=== PATIENT | male | born 1980 | race Caucasian/White ===

== ENCOUNTER 2019-01-06 09:01 | Emergency (ER) | payer MEDICAID ==
[~2019-01-06] VITALS: Ht 185.4 cm; Wt 99.8 kg
[2019-01-06 09:32] VITALS: BP 137/92
== END 2019-01-06 10:34 | disposition home or self-care (01) ==
LOC: ER 09:01
DX: S46.002A Unspecified injury of muscle(s) and tendon(s) of the rotator cuff of left shoulder, initial encounter (principal); V00.311A Fall from snowboard, initial encounter; Y93.23 Activity, snow (alpine) (downhill) skiing, snowboarding, sledding, tobogganing and snow tubing; Y92.89 Other specified places as the place of occurrence of the external cause; Y99.8 Other external cause status
CPT/HCPCS: 73030